=== PATIENT | female | born 1995 | race Caucasian/White ===

== ENCOUNTER 2017-02-19 01:10 | Emergency (ER) | payer OTHER ==
[2017-02-19 01:17] VITALS: RESP 16; TEMP 97.7; O2SAT 99
[2017-02-19] MEDS: APAP/HYDROCODONE 325/5 TAB PO ONE (01:25)
[2017-02-19] MEDS: SULFAMETHOXAZOLE/TRIMETHOPRI 800/160 MG PO ONE (01:25)
[2017-02-19] MEDS ORDERED: SULFAMETHOXAZOLE/TRIMETHOPRI 800/160 MG ONE (01:36)
[2017-02-19] MEDS ORDERED: APAP/HYDROCODONE 325/5 TAB ONE (01:36)
[2017-02-19 01:52] VITALS: BP 122/67; PULSE 82
== END 2017-02-19 01:43 | disposition home or self-care (01) | DRG 603 ==
LOC: ED 01:10
DX: L03.314 Cellulitis of groin (principal)
CPT/HCPCS: 99282

== ENCOUNTER 2017-02-25 00:10 | Emergency (ER) | payer OTHER ==
[2017-02-25 00:53] LABS: APPEARANCE,URINE Clear; BILIRUBIN,URINE NEGATIVE (NEGATIVE); COLOR,URINE Yellow; GLUCOSE, URINE (UA) NEGATIVE (NEGATIVE); KETONES,URINE NEGATIVE (NEGATIVE); LEUKOCYTE ESTERASE ,URINE NEGATIVE (NEGATIVE); NITRATE,URINE NEGATIVE (NEGATIVE); OCCULT BLOOD,URINE NEGATIVE (NEG-TRACE); PH,URINE 5.5; UROBILINOGEN,URINE 0.2 (0.2-1.0 EU)
[2017-02-25 00:57] LABS: RBC,URINE 0-2 (0-3AV/HPF)
[2017-02-25 01:29] VITALS: BP 104/56; PULSE 82; RESP 16; TEMP 97.6; O2SAT 98
== END 2017-02-25 01:43 | disposition home or self-care (01) | DRG 392 ==
LOC: ED 00:10
DX: R10.9 Unspecified abdominal pain (principal)
CPT/HCPCS: 81001; 84703; 99282

== ENCOUNTER 2017-04-02 18:14 | Emergency (ER) | payer OTHER ==
[2017-04-02 18:25] VITALS: BP 133/69; PULSE 96; RESP 20; TEMP 97.7; O2SAT 100
== END 2017-04-02 19:28 | disposition home or self-care (01) | DRG 782 ==
LOC: ED 18:14
DX: O26.851 Spotting complicating pregnancy, first trimester (principal); Z3A.01 Less than 8 weeks gestation of pregnancy
CPT/HCPCS: 99282

== ENCOUNTER 2017-05-16 22:43 | Emergency (ER) | payer OTHER ==
[2017-05-16 23:35] VITALS: BP 98/64; PULSE 84; RESP 16; TEMP 98; O2SAT 99
== END 2017-05-16 23:41 | disposition home or self-care (01) | DRG 605 ==
LOC: ED 22:43
DX: S60.222A Contusion of left hand, initial encounter (principal); W19.XXXA Unspecified fall, initial encounter
CPT/HCPCS: 73130; 99282

== ENCOUNTER 2017-11-11 12:11 | Emergency (ER) | payer OTHER ==
[2017-11-11 12:11] VITALS: O2SAT 99
[2017-11-11 12:36] VITALS: BP 121/76; PULSE 86; RESP 18; TEMP 97.7
== END 2017-11-11 13:11 | disposition home or self-care (01) | DRG 778 ==
LOC: ED 12:11
DX: O20.0 Threatened abortion (principal); Z3A.01 Less than 8 weeks gestation of pregnancy
CPT/HCPCS: 99282

== ENCOUNTER 2018-02-09 11:21 | Emergency (ER) | payer OTHER ==
[2018-02-09 11:43] VITALS: RESP 20
[2018-02-09 13:25] VITALS: BP 118/67; PULSE 85; TEMP 98; O2SAT 97
== END 2018-02-09 12:30 | disposition home or self-care (01) | DRG 781 ==
LOC: ED 11:21
DX: O26.852 Spotting complicating pregnancy, second trimester (principal); O23.42 Unspecified infection of urinary tract in pregnancy, second trimester; Z3A.16 16 weeks gestation of pregnancy
CPT/HCPCS: 59025; 99283

== ENCOUNTER 2019-03-21 14:08 | Emergency (ER) | payer SELFPAY ==
[2019-03-21 14:51] VITALS: BP 129/80; PULSE 93; RESP 20; TEMP 97.9; O2SAT 99
== END 2019-03-21 15:05 | disposition home or self-care (01) | DRG 153 ==
LOC: ED 14:08
DX: H66.93 Otitis media, unspecified, bilateral (principal)
CPT/HCPCS: 99282